=== PATIENT | male | born 1975 | race Two or more races ===

== ENCOUNTER 2018-05-20 11:30 | Emergency (ER) | payer MEDICAID, OTHER ==
--- NOTE | 2018-05-20 12:16 | EDM.PDOC ---
ED HPI GENERAL MEDICAL PROBLEM - General Chief Complaint: Respiratory Problem Stated Complaint: SWOLLEN THROAT, CONGESTION Time Seen by Provider: 05/20/18 12:00 Source of Information: Reports: Patient History Limitations: Reports: No Limitations - History of Present Illness INITIAL COMMENTS - FREE TEXT/NARRATIVE: Fredo comes into [facility] ED with respiratory sxs including nasal congestion, post nasal discharge, chest congestion and coughing, and malaise over the past 3 days. There is no fever, chills, sweats, SOB, chest pain or GI upset. He is undergoing significant stress over recent separation of SO and children last week. He has a PMH of RUTH and more recent diagnosis of BPAD from [facility]. His supply of meds is depleted. He has not spoken with staff since separation occurred. Throat Pain Score (Numeric/FACES): 7 - Related Data Allergies Allergy/AdvReac Type Severity Reaction Status Date / Time No Known Allergies Allergy Verified 05/20/18 11:42 Home Meds: Home Meds Azithromycin [Zithromax] 250 mg PO DAILY #6 tab 05/20/18 [Rx] Lurasidone HCl [Latuda] 40 mg PO DAILY 05/20/18 [History] Sertraline [Zoloft] 100 mg PO DAILY 05/20/18 [History] Past Medical History Gastrointestinal History: Reports: Other (See Below) Other Gastrointestinal History: Diverticulitis Psychiatric History: Reports: Anxiety, Depression, Suicide Attempt, Suicidal Ideation Endocrine/Metabolic History: Reports: Obesity/BMI 30+ - Past Surgical History GI Surgical History: Reports: Hernia Repair/Other Social & Family History - Family History Family Medical History: Noncontributory - Tobacco Use Smoking Status *Q: Current Every Day Smoker Years of Tobacco use: 10 Packs/Tins Daily: 0.5 - Caffeine Use Caffeine Use: Reports: Coffee, Energy Drinks - Recreational Drug Use Recreational Drug Use: Yes Recreational Drug Type: Reports: Marijuana/Hashish Recreational Drug Use Frequency: Daily ED ROS GENERAL - Review of Systems Review Of Systems: See Below Constitutional: Reports: Malaise, Decreased Appetite HEENT: Reports: Rhinitis, Throat Pain Respiratory: Reports: Cough, Sputum Cardiovascular: Reports: No Symptoms Endocrine: Reports: No Symptoms GI/Abdominal: Reports: No Symptoms : Reports: No Symptoms Musculoskeletal: Reports: No Symptoms Skin: Reports: No Symptoms Neurological: Reports: No Symptoms Psychiatric: Reports: Agitation, Anxiety, Depression, Mood Lability Hematologic/Lymphatic: Reports: No Symptoms Immunologic: Reports: No Symptoms ED EXAM, GENERAL - Physical Exam Exam: See Below Exam Limited By: No Limitations General Appearance: Alert, WD/WN, No Apparent Distress, Anxious, Obese Eye Exam: Bilateral Eye: EOMI, Normal Inspection, PERRL Ears: Normal External Exam, Normal TMs Nose: Normal Inspection, Nasal Drainage, Clear Rhinorrhea Throat/Mouth: Normal Inspection, Normal Lips, Normal Teeth, Normal Gums, No Airway Compromise Head: Normocephalic Neck: Normal Inspection, Supple, Non-Tender, Full Range of Motion Respiratory/Chest: No Respiratory Distress, No Accessory Muscle Use, Crackles Cardiovascular: Regular Rate, Rhythm, No Murmur GI/Abdominal: Normal Bowel Sounds, Soft, Non-Tender, No Organomegaly, No Distention, No Mass (Male) Exam: Deferred Rectal (Males) Exam: Deferred Back Exam: Normal Inspection Extremities: Normal Inspection Neurological: Alert, Oriented, CN II-XII Intact, Normal Cognition, Normal Gait Psychiatric: Anxious, Tearful, Other Skin Exam: Warm, Dry, Intact, Normal Color Lymphatic: No Adenopathy Course - Vital Signs Text/Narrative:: Clinical findings for a URI, and I dispensed a Z Toy as directed. His behavioral issues are more complex. He spoke with his therapist who suggested returning to [facility] for follow up, and he has agreed to do this. His prescription meds are still available for refills thru the pharmacy. Last Recorded V/S: Last Vital Signs Temp 36.0 C 05/20/18 11:40 Pulse 78 05/20/18 11:40 Resp 20 05/20/18 11:40 BP 122/78 05/20/18 11:40 Pulse Ox 96 05/20/18 11:40 Departure - Departure Time of Disposition: 12:48 Disposition: Home, Self-Care 01 Condition: Fair Clinical Impression: Bipolar 1 disorder, Adjustment disorder with anxiety Upper respiratory infection Qualifiers: URI type: unspecified URI Qualified Code(s): J06.9 - Acute upper respiratory infection, unspecified - Discharge Information *PRESCRIPTION DRUG MONITORING PROGRAM REVIEWED*: Not Applicable *COPY OF PRESCRIPTION DRUG MONITORING REPORT IN PATIENT CORTEZ: Not Applicable Prescriptions: Azithromycin [Zithromax] 250 mg PO DAILY #6 tab Instructions: Azithromycin tablets, Upper Respiratory Infection, Adult, Easy-to -Read Referrals: PCP,None [Primary Care Provider] - Forms: ED Department Discharge - Problem List & Annotations (1) Adjustment disorder with anxiety SNOMED Code(s): 18015070 Code(s): F43.22 - ADJUSTMENT DISORDER WITH ANXIETY Status: Acute Current Visit: Yes Annotation/Comment:: Follow up at [facility] (2) Bipolar 1 disorder SNOMED Code(s): 298176538 Code(s): F31.9 - BIPOLAR DISORDER, UNSPECIFIED Status: Acute Current Visit: Yes Annotation/Comment:: Follow up at [facility] (3) Upper respiratory infection SNOMED Code(s): 72526226 Code(s): J06.9 - ACUTE UPPER RESPIRATORY INFECTION, UNSPECIFIED Status: Acute Current Visit: Yes Annotation/Comment:: I dispensed a Z Toy as directed, decongestant of choice, and rest. Qualifiers: URI type: unspecified URI Qualified Code(s): J06.9 - Acute upper respiratory infection, unspecified - Problem List Review Problem List Initiated/Reviewed/Updated: Yes - Assessment/Plan Plan: Follow up with PCP if needed.
== END 2018-05-20 12:50 | disposition home or self-care (01) ==
LOC: FB.ED 11:30
DX: J06.9 Acute upper respiratory infection, unspecified (principal); F31.9 Bipolar disorder, unspecified; F43.22 Adjustment disorder with anxiety; F17.210 Nicotine dependence, cigarettes, uncomplicated; Z79.899 Other long term (current) drug therapy
CPT/HCPCS: 99283